=== PATIENT | male | born 1935 | race Native Hawaiian/Other Pacific Islander ===

== ENCOUNTER 2019-10-21 11:02 | Outpatient (CLI) | payer OTHER ==
[2019-10-21 11:41] LABS: PLATELET COUNT 252 K/uL (142-355)
[2019-10-21 12:34] LABS: POTASSIUM 4.1 mmol/L (3.6-5.2)
== END 2019-10-21 21:37 | disposition home or self-care (01) ==
LOC: LAB 11:02
PROVIDERS: Internal Medicine
DX: I25.10 Atherosclerotic heart disease of native coronary artery without angina pectoris (principal); E11.9 Type 2 diabetes mellitus without complications; I10 Essential (primary) hypertension; E78.49 Other hyperlipidemia
CPT/HCPCS: 80053; 80061; 81000; 83036; 85027